=== PATIENT | male | born 1975 | race Caucasian/White ===

== ENCOUNTER 2018-11-02 09:33 | Emergency (ER) | payer BC ==
[~2018-11-02] VITALS: Ht 188 cm; Wt 79.8 kg
[2018-11-02 09:33] VITALS: BP 131/94
== END 2018-11-02 10:32 | disposition home or self-care (01) ==
LOC: ER 09:37
DX: S60.021A Contusion of right index finger without damage to nail, initial encounter (principal); W22.8XXA Striking against or struck by other objects, initial encounter; Y93.89 Activity, other specified; Y92.89 Other specified places as the place of occurrence of the external cause; Y99.8 Other external cause status
CPT/HCPCS: 29130; 73140; 99283; A4606

== ENCOUNTER 2019-06-20 09:25 | Emergency (ER) | payer BC, OTHER ==
[~2019-06-20] VITALS: Ht 188 cm; Wt 83.5 kg
--- NOTE | 2019-06-20 09:35 | NUR ---
CAME IN FOR LEFT 4TH AND 5TH TOE REDNESS AND SWELLING, HAD I&D ON SATURDAY WITH PMD, CURRENTLY ON KEFLEX. TO ER BED 1, HOOKED TO MONITOR, AWAITING MD FRAUSTO.
--- NOTE | 2019-06-20 10:12 | NUR ---
DR GONZALEZ AT BEDSIDE
[2019-06-20] MEDS ORDERED: FLUCONAZOLE (100 MG) 100 MG TABLET PO ONE (10:30)
[2019-06-20] MEDS ORDERED: FLUCONAZOLE (100 MG) 100 MG TABLET ONE (10:44)
--- NOTE | 2019-06-20 10:57 | NUR ---
Patient discharged to home in stable condition. Written and verbal after care instructions given. Patient verbalizes understanding of instruction.
[2019-06-20 10:58] VITALS: BP 128/92
== END 2019-06-20 10:58 | disposition home or self-care (01) ==
LOC: ER 09:27
DX: L03.116 Cellulitis of left lower limb (principal); F17.200 Nicotine dependence, unspecified, uncomplicated